=== PATIENT | female | born 1950 | race Caucasian/White ===

== ENCOUNTER → 2023-10-05 11:16 | Outpatient (REF) | payer MEDICARE, OTHER, SELFPAY | LOC: HWRAD 11:16 | PROVIDERS: ATTENDING PHYSICIAN Internal Medicine Endocrinology, Diabetes & Metabolism; FAMILY PHYSICIAN Family Medicine | DX: E04.1 Nontoxic single thyroid nodule (principal) | CPT/HCPCS: 76536 ==

== ENCOUNTER → 2023-11-06 16:29 | Outpatient (REF) | payer MEDICARE, OTHER, SELFPAY | LOC: RCS 16:29 | PROVIDERS: FAMILY PHYSICIAN Family Medicine | DX: H25.812 Combined forms of age-related cataract, left eye (principal) | CPT/HCPCS: 93005 ==

== ENCOUNTER → 2024-03-02 12:41 | Outpatient (REF) | payer MEDICARE, OTHER, SELFPAY | LOC: RCS 12:41 | PROVIDERS: ATTENDING PHYSICIAN Ophthalmology; FAMILY PHYSICIAN Family Medicine | DX: H25.811 Combined forms of age-related cataract, right eye (principal); H25.812 Combined forms of age-related cataract, left eye | CPT/HCPCS: 93005 ==

== ENCOUNTER → 2024-07-10 10:40 | Outpatient (REF) | payer MEDICARE, OTHER, SELFPAY | LOC: MRI 3T 10:40 | PROVIDERS: ATTENDING PHYSICIAN Family Medicine | DX: R41.3 Other amnesia (principal); R53.83 Other fatigue; E04.1 Nontoxic single thyroid nodule; F33.1 Major depressive disorder, recurrent, moderate; E21.3 Hyperparathyroidism, unspecified; Z96.643 Presence of artificial hip joint, bilateral | CPT/HCPCS: 70551 ==

== ENCOUNTER → 2024-10-04 13:40 | Outpatient (REF) | payer MEDICARE, OTHER, SELFPAY | LOC: RCS 13:40 | PROVIDERS: ATTENDING PHYSICIAN Ophthalmology; FAMILY PHYSICIAN Family Medicine | DX: Z01.818 Encounter for other preprocedural examination (principal) | CPT/HCPCS: 93005 ==

== ENCOUNTER 2024-12-20 00:01 | Emergency (ER) | payer MEDICARE, OTHER, SELFPAY ==
[2024-12-20 00:15] VITALS: BP 169/82
[2024-12-20 00:24] VITALS: BP 169/82; BMI 20.1
[2024-12-20 01:00] VITALS: BP 146/73
[2024-12-20 01:10] LABS: Hematocrit 40.6 % (37.0-47.0); Hemoglobin 14.5 g/dL (12.0-16.0); Mean Corp Hgb Conc. 35.7 g/dL (33.0-37.0); Mean Corpuscular Volume 87.7 fL (81.0-99.0); Nucleated Red Blood Cells % 0 %; Platelet Count 265 10^3/uL (130-400); Red Cell Dist. Width 13.0 % (11.5-14.5)
[2024-12-20 01:34] LABS: ALT (SGPT) 30 U/L (0-35); AST (SGOT) 37 U/L (14-36); Albumin 4.8 g/dl (3.5-5.0); Alkaline Phosphatase 62 U/L (38-126); Blood Urea Nitrogen 12 mg/dl (7-17); Calcium 10.2 mg/dl (8.4-10.2); Carbon Dioxide 23 mmol/L (22-30); Chloride 100 mmol/L (98-107); Estimated Creatinine Clearance 65 ml/min; Glucose 76 mg/dl (70-99); Potassium 4.1 mmol/L (3.5-5.1); Sodium 134 mmol/L (135-145); Total Protein 7.5 g/dl (6.3-8.2); eGFR > 60.00
[2024-12-20 02:00] VITALS: BP 124/76
--- NOTE | 2024-12-20 05:47 | ED.GENMED ---
History of Present Illness
<Ike Jones MD - Last Filed: 12/20/24 19:10>
General
Chief Complaint: Overdose Intentional
Source: patient
Exam Limitations: none
Time Seen by Provider: 12/20/24 00:19
Nursing documentation reviewed up to this point in time: agreed with
History of Present Illness
History of Present Illness:
Patient with history of anxiety, who takes Lexapro as well as Klonopin, presents to ED after taking 8 tablets of Klonopin, after expressing suicidal thoughts to her . Her was able to count number of pills in the bottle and confirmed
that it was only 8 tablets that was taken. In addition, patient also had wine this evening. Denies use of other medications. Patient states that they have been under increased stress recently, which may have contributed to patient's action
tonight. Denies previous history of suicidal attempt. Upon arrival, patient reports not being able to urinate despite urge over the past 6 hours.
Review of Systems
<Ike Jones MD - Last Filed: 12/20/24 19:10>
Review of Systems
Allergies reviewed?: Yes
All Other Systems: ROS reviewed and negative except as documented in HPI and ROS
Constitutional: Reports no symptoms; Denies fever
Respiratory: Reports no symptoms
Cardiac: Reports no symptoms
ABD/GI: Reports no symptoms
: Reports difficulty voiding; Denies dysuria
Musculoskeletal: Reports no symptoms
Skin: Reports no symptoms
Neurological: Reports no symptoms
Psychiatric: Reports anxiety and suicidal
Phy Exam
<Ike Jones MD - Last Filed: 12/20/24 19:10>
Physical Exam
Physical Exam:
Physical Exam
General: no apparent distress, not acutely ill. afebrile
Head: nc/at. eomi
Neck: supple. normal range of motion.
Heart: s1/s2 regular rate and rhythm
Lungs: no acute respiratory distress. clear bilaterally
Abdomen: normal bowel sounds. not tender.
Neuro: alert and oriented x 3. no focal neurological deficits
Skin: no rash
Psychiatric: well kept. interactive and cooperative
Extremities: no edema. no calf tenderness.
Course
<Ike Jones MD - Last Filed: 12/20/24 19:10>
Orders/Labs/Results
Orders:
Orders
12/20/24 00:11
Electrocardiogram (*1) Urgent
Reason for Study: Bradycardia / Tachycardia
EKG- Treatment ONCE
12/20/24 00:33
1:1 Observation - Suicide/ Violent Behavior As Directed
Crisis Consult Urgent
Reason for Consult: SI
12/20/24 00:56
Alcohol Urgent
Complete Blood Count/With Diff Urgent
Comprehensive Metabolic Panel Urgent
12/20/24 01:45
Bladder Scan- Treatment ONCE
Hernandez Placement- Treatment ONCE
Reason for insertion: Acute Retention
12/20/24 07:28
Midazolam HCl [Versed] 1 mg IM NOW STA
Abnormal Lab Results
12/20/24
00:56
MCH 31.3 H pg
(27.0-31.0)
Sodium 134 L mmol/L
(135-145)
AST 37 H U/L
(14-36)
12/20/24 00:56
12/20/24 00:56
Vital Signs
Initial and Last Documented VS:
Initial Vital Signs
Pulse Resp Pulse Ox
46 15 100
12/20/24 00:13 12/20/24 00:13 12/20/24 00:13
Last Documented Vital Signs
Temp Pulse Resp BP Pulse Ox
97.2 F 57 16 125/73 96
12/20/24 00:24 12/20/24 08:13 12/20/24 08:13 12/20/24 08:13 12/20/24 08:13
<Gali Hernandez MD - Last Filed: 12/20/24 09:22>
Orders/Labs/Results
Orders:
Orders
12/20/24 00:11
Electrocardiogram (*1) Urgent
Reason for Study: Bradycardia / Tachycardia
EKG- Treatment ONCE
12/20/24 00:33
1:1 Observation - Suicide/ Violent Behavior As Directed
Crisis Consult Urgent
Reason for Consult: SI
12/20/24 00:56
Alcohol Urgent
Complete Blood Count/With Diff Urgent
Comprehensive Metabolic Panel Urgent
12/20/24 01:45
Bladder Scan- Treatment ONCE
Hernandez Placement- Treatment ONCE
Reason for insertion: Acute Retention
12/20/24 07:28
Midazolam HCl [Versed] 1 mg IM NOW STA
Abnormal Lab Results
12/20/24
00:56
MCH 31.3 H pg
(27.0-31.0)
Sodium 134 L mmol/L
(135-145)
AST 37 H U/L
(14-36)
12/20/24 00:56
12/20/24 00:56
Vital Signs
Initial and Last Documented VS:
Initial Vital Signs
Pulse Resp Pulse Ox
46 15 100
12/20/24 00:13 12/20/24 00:13 12/20/24 00:13
Last Documented Vital Signs
Temp Pulse Resp BP Pulse Ox
97.2 F 57 16 125/73 96
12/20/24 00:24 12/20/24 08:13 12/20/24 08:13 12/20/24 08:13 12/20/24 08:13
<Ike Jones MD - Last Filed: 12/20/24 19:10>
MDM/Problems Addressed
MDM/Problems Addressed:
Bladder scan: > 1000ml urine. Hernandez catheter temporarily inserted and then removed. Will encourage patient to drink fluids and attempt to void on her own.
[facility] Patient will be transferred to inpatient psychiatric facility for further evaluation and treatment.
<Ike Jones MD - Last Filed: 12/20/24 19:10>
*Pulse Oximetry
SaO2: 100
Oxygen Mode of Delivery: Room air
Patient hypoxic: no
*Critical Care Note
Total Time (30-74mins, 75-104mins- exclusive of procedures): Not Applicable
<Gali Hernandez MD - Last Filed: 12/20/24 09:22>
Update Note
Update Note:
9:20 AM patient reportedly was having some urinary retention although was also able to void on her own. Case discussed with urology. Dr. Lawson states that if postvoid residual is around 250 or less, comfortable with patient being
discharged/transferred to friends. Patient is comfortably voiding. Discussed with Srinivas from crisis as well as JULIANA hickman.
ED Attending Note
<Ike Jones MD - Last Filed: 12/20/24 19:10>
-
Portions of this chart may have been created with voice recognition software.� Occasional wrong word or��sound alike� substitutions may have occurred due to the inherent limitations of voice recognition software.
Discharge Plan
Departure
Patient Disposition: Psych Facility
Date of Disposition: 12/20/24
Time of Disposition: 05:54
Patient Status:: 201
Discharge Problem:
Suicide attempt
Prescriptions:
No Action
sertraline 25 mg Tablet
12.5 mg PO DAILY
Estradiol Gel
1 dose topical WEEKLY
amoxicillin 875 mg tablet
875 mg PO BID Qty: 10 0RF
clonazepam 1 mg Tablet
3 mg PO HS
Referrals:
Melonie Fernandez MD [Family Provider, Family Practice]
Interventions
Interventions:
*Risk Screen - Suicide Last Done: 12/20/24 00:24
*General Assessment Last Done: 12/20/24 00:24
*Neglect/Abuse Screening Last Done: 12/20/24 00:24
*ED- Fall Risk Assessment Last Done: 12/20/24 00:24
*ED COVID-19 Vaccine History Last Done: 12/20/24 00:24
*Nursing Disposition Last Done: 12/20/24 09:25
ED- Cardiac Assessment Last Done: 12/20/24 01:41
ED- Neurological Assessment Last Done: 12/20/24 01:41
ED-Psychological Assessment Last Done: 12/20/24 07:22
ED- Pulmonary Assessment Last Done: 12/20/24 01:41
Discharge Date and Time
Discharge Date/Time: 12/20/24 09:25
Print Language: URDU
[2024-12-20 07:22] VITALS: BP 190/79
[2024-12-20] MEDS: VERSED 1 MG IM (07:46)
[2024-12-20 08:13] VITALS: BP 125/73
== END 2024-12-20 09:25 ==
LOC: EMR 00:01
PROVIDERS: Emergency Medicine; EMERGENCY PHYSICIAN Emergency Medicine; FAMILY PHYSICIAN Family Medicine
DX: T42.4X2A Poisoning by benzodiazepines, intentional self-harm, initial encounter (principal); Y92.009 Unspecified place in unspecified non-institutional (private) residence as the place of occurrence of the external cause; F41.9 Anxiety disorder, unspecified; Z79.899 Other long term (current) drug therapy; R33.9 Retention of urine, unspecified
CPT/HCPCS: 51702; 99285; 96372; 80053; 82077; 85025; 93005